=== PATIENT | male | born 1980 | race Caucasian/White ===

== ENCOUNTER 2018-09-22 16:03 | Emergency (ER) | payer MEDICAID ==
[~2018-09-22] VITALS: Ht 175.3 cm; Wt 91.7 kg
[~2018-09-22 16:03] MED LIST: ADDERALL10 MG PO; OXYCODONE AND A1 TA2 PO
[2018-09-22 16:05] VITALS: Ht 175.3 cm; Wt 91.7 kg
[2018-09-22 18:19] VITALS: BP 143/84
== END 2018-09-22 18:19 | disposition home or self-care (01) ==
LOC: ED 16:03
DX: M54.5 Low back pain (principal); G89.29 Other chronic pain
CPT/HCPCS: J3010

== ENCOUNTER 2020-02-19 03:18 | Emergency (ER) | payer OTHER ==
[~2020-02-19] VITALS: Ht 175.3 cm; Wt 79.4 kg
[2020-02-19 03:26] VITALS: Ht 175.3 cm; Wt 79.4 kg
[2020-02-19 04:04] LABS: BASOPHIL % 0.8 % (0-2); PLATELET COUNT 246 x10^3mcL (130-400); RED CELL DISTRIBUTION WIDTH 13.4 % (11.5-14.5)
[2020-02-19 04:29] LABS: UA SPECIFIC GRAVITY 1.025 (1.005-1.035); microscopic required? YES; urine erythrocyte NEGATIVE (NEGATIVE)
[2020-02-19 04:39] LABS: CALCIUM 8.8 mg/dL (8.5-10.1); CARBON DIOXIDE 35.3 mmol/L (21-32); CHLORIDE SERUM 100 mmol/L (98-107); CREATININE SERUM 1.1 mg/dL (0.7-1.3); GFR1 > 60 mL/min; GLUCOSE SERUM 90 mg/dL (74-106); POTASSIUM SERUM 3.8 mmol/L (3.5-5.1); SODIUM SERUM 136 mmol/L (136-145)
[2020-02-19 04:45] LABS: ALBUMIN 4.1 g/dL (3.4-5.0); ALKALINE PHOSPHATASE 60 U/L (46-116); ALT/SGPT 18 U/L (16-63); AST/SGOT 20 U/L (15-37)
[2020-02-19 08:03] VITALS: BP 99/62
== END 2020-02-19 08:03 | disposition home or self-care (01) ==
LOC: ED 03:18
PROVIDERS: Emergency Medicine
DX: E86.0 Dehydration (principal); M54.9 Dorsalgia, unspecified; G89.29 Other chronic pain
CPT/HCPCS: J7030